=== PATIENT | female | born 1975 | race Caucasian/White ===

== ENCOUNTER 2016-04-21 22:08 | Emergency (ER) | payer MEDICAID, OTHER ==
[2016-04-21 22:16] VITALS: BP 176/105
[2016-04-21 23:41] LABS: Basophils % (Auto) 0.3 % (0.0-1.8); Eosinophils % (Auto) 1.2 % (0.0-4.3); Hematocrit 42.4 % (30.3-42.9); Hemoglobin 14.6 gm/dl (10.1-14.3); Mean Corpuscular HGB Conc 34 % (30-34); Mean Corpuscular Hemoglobin 32 pg (28-32); Mean Corpuscular Volume 92 fl (79-97); Platelet Count 188 K/mm3 (140-440); Red Blood Count 4.62 M/mm3 (3.65-5.03); Red Cell Distribution Width 12.5 % (13.2-15.2); White Blood Count 8.8 K/mm3 (4.5-11.0)
[2016-04-21 23:50] LABS: INR 0.9 (0.87-1.13)
[2016-04-21 23:51] LABS: Partial Thromboplastin Time 28.4 Sec. (24.2-36.6)
[2016-04-21 23:54] LABS: Anion Gap 19 mmol/L; BUN/Creatinine Ratio 18.33; Blood Urea Nitrogen 11 mg/dL (7-17); Carbon Dioxide 25 mmol/L (22-30); Chloride 97.9 mmol/L (98-107); Glucose 105 mg/dL (65-100); Sodium 138 mmol/L (137-145)
--- NOTE | 2016-04-22 01:46 | Cat Scan Report ---
FINAL REPORT EXAM: CT HEAD/BRAIN WO CON HISTORY: right side weakness x 7 days, headache, blurred vi TECHNIQUE: CT scan of the brain without IV contrast. PRIORS: 02/07/2013 FINDINGS: Brain volume is normal for age. No hemorrhage, mass, mass effect, or midline shift. No hydrocephalus. Normal basal cisterns. No pathologic extra-axial fluid collection. No evidence of acute infarct. No skull fracture. IMPRESSION: 1. No acute intracranial finding.
--- NOTE | 2016-04-24 14:39 | ED Elopement Review ---
ED Pt Elopement review - Results review Lab results: Laboratory Tests 04/21/16 04/21/16 04/21/16 23:13 23:13 23:13 WBC 8.8 RBC 4.62 Hgb 14.6 H Hct 42.4 MCV 92 MCH 32 MCHC 34 RDW 12.5 L Plt Count 188 Lymph % (Auto) 46.2 H [place] % (Auto) 4.7 Eos % (Auto) 1.2 Baso % (Auto) 0.3 Lymph # 4.1 [place] # 0.4 Eos # 0.1 Baso # 0.0 Seg Neutrophils % 47.6 Seg Neutrophils # 4.2 PT 12.0 L INR 0.90 APTT 28.4 Thrombin Time Sodium 138 Potassium 4.0 Chloride 97.9 L Carbon Dioxide 25 Anion Gap 19 BUN 11 Creatinine 0.6 L Estimated GFR > 60 BUN/Creatinine Ratio 18.33 Glucose 105 H Calcium 9.0 Troponin T < 0.010 Urine HCG, Qual 04/21/16 04/21/16 23:13 Unknown WBC RBC Hgb Hct MCV MCH MCHC RDW Plt Count Lymph % (Auto) [place] % (Auto) Eos % (Auto) Baso % (Auto) Lymph # [place] # Eos # Baso # Seg Neutrophils % Seg Neutrophils # PT INR APTT Thrombin Time 86.2 H Sodium Potassium Chloride Carbon Dioxide Anion Gap BUN Creatinine Estimated GFR BUN/Creatinine Ratio Glucose Calcium Troponin T Urine HCG, Qual Negative - Call Back decision Pt Call Back Decision: No action required
== END 2016-04-22 08:15 | disposition left against medical advice (07) ==
LOC: ED 22:08
DX: M79.1 Myalgia (principal); M53.1 Cervicobrachial syndrome; Z53.21 Procedure and treatment not carried out due to patient leaving prior to being seen by health care provider
CPT/HCPCS: 36415; 70450; 80048; 81025; 84484; 85025; 85610; 85670; 85730; 93005; 93010